=== PATIENT | female | born 1965 | race African-American/Black ===

== ENCOUNTER 2018-10-31 18:10 | Emergency (ER) | payer OTHER ==
[~2018-10-31] VITALS: Ht 162.6 cm; Wt 99.8 kg
[2018-10-31] MEDS ORDERED: METFORMIN HCL500 MG PO (19:03)
[2018-10-31] MEDS ORDERED: HYDROCHLOROTHIA25 M2 PO (19:03)
[2018-10-31] MEDS ORDERED: ENOXAPARIN40 MG/0.1 SUBQ (19:40)
[2018-10-31 20:57] VITALS: BP 148/74
== END 2018-10-31 20:59 | disposition home or self-care (01) ==
LOC: ER 18:10
DX: R60.0 Localized edema (principal); D64.9 Anemia, unspecified; Z96.652 Presence of left artificial knee joint; Z86.718 Personal history of other venous thrombosis and embolism

== ENCOUNTER 2018-11-01 16:21 | Emergency (ER) | payer OTHER ==
[~2018-11-01] VITALS: Ht 162.6 cm; Wt 99.8 kg
[~2018-11-01 16:21] MED LIST: ENOXAPARIN40 MG/0.1 SUBQ; HYDROCHLOROTHIA25 M2 PO; METFORMIN HCL500 MG PO
[2018-11-01 18:19] LABS: ABSOLUTE NEUTROPHILS 6.5 thou/uL (1.4-8.2); BASOPHILS 1.1 % (0.0-2.0); EOSINOPHILS 1.6 % (0.0-3.0); HEMATOCRIT 29.8 % (37.0-47.0); HEMOGLOBIN 9.8 gm/dL (12.0-15.0); LYMPHOCYTES 35.6 % (24.0-44.0); MCHC 32.9 g/dL (28.0-37.0); MONOCYTES 4.3 % (1.0-8.0); PLATELET COUNT 361 thou/uL (150-400); POLYS 57.4 % (36.0-66.0); RBC 3.64 mil/uL (4.20-5.00); WBC 11.3 thou/uL (4.0-11.0)
[2018-11-01 18:34] LABS: ANION GAP 6 mmol/L (7-16); BUN 8 mg/dL (7-18); CALCIUM 8.9 mg/dL (8.5-10.1); CHLORIDE 99 mmol/L (98-107); CO2 32 mmol/L (21-32); CREATININE 0.7 mg/dL (0.6-1.0); GLUCOSE 124 mg/dL (74-106); POTASSIUM 3.8 mmol/L (3.5-5.1); SODIUM 137 mmol/L (136-145)
[2018-11-01 18:42] LABS: ALBUMIN 3.2 g/dL (3.4-5.0); SGOT 30 U/L (15-37); SGPT 36 U/L (30-65); TOTAL BILIRUBIN 0.2 mg/dL (<0.1-1.0); TOTAL PROTEIN 7.3 g/dL (6.4-8.2); TROPONIN-I <0.06 ng/mL (<0.06)
[2018-11-01 19:05] LABS: INR 1.2; PROTIME 12.1 Seconds (9.3-11.4)
[2018-11-01 22:40] VITALS: BP 114/115
--- NOTE | 2018-11-02 13:38 | EKG ---
[address] [address] ELECTROCARDIOGRAM REPORT Name: RAN LLANOS Room #: DEP YOVANI Webb#: [id number] Admission: 11/01/18 Attend Phys: Discharge: 11/02/18 Date of : 63 Report #: [id number] THIS REPORT FOR: //name// [facility]ly [facility] ED Test Date: 2018-11-01 Test Time: 16:55:05 Pat Name: RAN LLANOS Department: Room: Gender: F Certified Driver Examiner: [place] : 1965 Requested By: Angie Jaffe Order Number: [id number] MD: Ishaan Pablo Measurements Intervals [place] Rate: 104 P: 40 AL: 153 QRS: 23 QRSD: 77 T: 58 QT: 406 QTc: 534 Interpretive Statements Sinus tachycardia Compared to ECG 04/12/2005 01:28:38 Sinus rhythm no longer present Electronically Signed On 11-02-2018 13:38:49 INTELLECTUAL PROPERTY COUNSEL by Ishaan Pablo [email or web address] <ELECTRONICALLY SIGNED> By: Ishaan Pablo MD 11/02/18 1338 [id number] MD DALE Leigh
== END 2018-11-02 00:13 | disposition home or self-care (01) ==
LOC: ER 16:21
PROVIDERS: Physician Assistant
DX: J18.9 Pneumonia, unspecified organism (principal); I10 Essential (primary) hypertension; E11.9 Type 2 diabetes mellitus without complications; Z96.652 Presence of left artificial knee joint